=== PATIENT | male | born 1960 | race Caucasian/White ===

== ENCOUNTER 2020-06-20 09:30 | Emergency (ER) | payer MEDICAID, OTHER ==
[~2020-06-20] VITALS: Ht 177.8 cm; Wt 97.7 kg
[~2020-06-20 09:30] MED LIST: ASPI-1444 PO; ATOR40TA28 PO; SERT-162 PO
[2020-06-20] MEDS ORDERED: SODIUM CHLORIDE 0.9% 100 ML ONE (10:12)
[2020-06-20] MEDS ORDERED: IOVERSOL 350 MG/ML 100 ML VIAL ONE (10:12)
[2020-06-20] MEDS ORDERED: HYDROmorphone 2 MG/ML VIAL IVP ONE (10:15)
[2020-06-20] MEDS ORDERED: ONDANSETRON HCL 4 MG/2 ML VIAL IVP ONE (10:15)
[2020-06-20 10:16] LABS: BASOPHILS % (AUTO) 0.5 % (0.0-2.0); EOSINOPHILS % (AUTO) 3.1 % (1.0-6.0); HEMATOCRIT 43.4 % (41-53); HEMOGLOBIN 14.6 g/dL (13.5-17.5); LYMPHOCYTES % (AUTO) 14.6 % (22.0-44.0); MEAN CORPUSCULAR HEMOGLOBIN 33.2 pg (26.0-34.0); MEAN CORPUSCULAR HGB CONC 33.7 G/dL (31.0-37.0); MEAN CORPUSCULAR VOLUME 98 fL (80-100); MONOCYTES # (AUTO) 0.6 K/uL (0.1-1.0); MONOCYTES % (AUTO) 7.9 % (2.0-9.0); NEUTROPHILS # (AUTO) 5.3 K/uL (1.8-7.7); NEUTROPHILS % (AUTO) 73.9 % (40.0-70.0); PLATELET COUNT (AUTO) 181 K/uL (150-450); RED BLOOD CELL COUNT(AUTO) 4.41 MIL/uL (4.50-5.90); RED CELL DISTRIBUTION WIDTH 13.3 % (11.5-14.5)
[2020-06-20 10:27] LABS: ANION GAP 10 mmol/L (8-16); CARBON DIOXIDE 27 mmol/L (22-29); CHLORIDE 103 mmol/L (98-107); CREATININE 0.97 mg/dL (0.60-1.30); GLOMERULAR FILTR. RATE CALC > 60 mL/min (>60); GLUCOSE,RANDOM 104 mg/dL (70-110); POTASSIUM 4.4 mmol/L (3.5-5.1); SODIUM SERUM 140 mmol/L (136-145); UREA NITROGEN, BLOOD 25 mg/dL (7-18)
[2020-06-20 10:34] LABS: ALANINE AMINOTRANSFERASE 43 U/L (12-78); ALBUMIN 4.1 g/dL (3.4-5.0); ALKALINE PHOSPHATASE 71 U/L (46-116); ASPARTATE AMINOTRANSFERASE 25 U/L (15-37); BILIRUBIN,TOTAL 0.3 mg/dL (0.1-1.0); TOTAL PROTEIN, SERUM 8.1 g/dL (6.4-8.2)
[2020-06-20 10:41] LABS: LACTIC ACID 1.1 mmol/L (0.4-2.0)
[2020-06-20] MEDS ORDERED: HYDROCODONE/ACETAMINOPHEN 5-325 MG TABLET PO ONE (12:00)
[2020-06-20 12:12] VITALS: BP 109/89
== END 2020-06-20 12:29 | disposition home or self-care (01) ==
LOC: EMS 09:30
DX: K62.89 Other specified diseases of anus and rectum (principal); Z79.82 Long term (current) use of aspirin
CPT/HCPCS: 36415; 74177; 80053; 82962; 83605; 84484; 85025; 87040; 96374; 96375; 99285; J1170; J2405; J7050; Q9967

== ENCOUNTER 2022-01-22 07:55 | Emergency (ER) | payer OTHER ==
[~2022-01-22] VITALS: Ht 167.6 cm; Wt 86.4 kg
[2022-01-22 07:58] VITALS: BP 109/57
[2022-01-22] MEDS ORDERED: CARV3.1231 PO (08:00)
[2022-01-22] MEDS ORDERED: IBUPROFEN 600 MG TABLET PO ONE (08:15)
[2022-01-22] MEDS ORDERED: ACETAMINOPHEN 500 MG TABLET PO ONE (08:15)
[2022-01-22 08:22] LABS: COVID AG,FIA SOURCE NASOPHARYNGEAL
[2022-01-22 08:47] LABS: INFLUENZA TYPE B NEGATIVE FOR TYPE B (NEGATIVE)
[2022-01-22 08:57] LABS: INFLUENZA TYPE A POSITIVE FOR TYPE A (NEGATIVE)
[2022-01-22 09:00] LABS: BASOPHILS % (AUTO) 0.7 % (0.0-2.0); EOSINOPHILS % (AUTO) 1.1 % (1.0-6.0); HEMOGLOBIN 13.5 g/dL (13.5-17.5); LYMPHOCYTES # (AUTO) 0.4 K/uL (1.0-4.8); LYMPHOCYTES % (AUTO) 6.7 % (22.0-44.0); MEAN CORPUSCULAR HGB CONC 33.7 G/dL (31.0-37.0); MEAN CORPUSCULAR VOLUME 101 fL (80-100); MONOCYTES # (AUTO) 0.7 K/uL (0.1-1.0); MONOCYTES % (AUTO) 12.6 % (2.0-9.0); NEUTROPHILS # (AUTO) 4.3 K/uL (1.8-7.7); NEUTROPHILS % (AUTO) 78.9 % (40.0-70.0); PLATELET COUNT (AUTO) 141 K/uL (150-450); RED BLOOD CELL COUNT(AUTO) 3.96 MIL/uL (4.50-5.90); RED CELL DISTRIBUTION WIDTH 13.2 % (11.5-14.5)
[2022-01-22 09:10] LABS: CALCIUM, TOTAL 8.9 mg/dL (8.8-10.5); CREATININE 1.28 mg/dL (0.60-1.30); POTASSIUM 3.7 mmol/L (3.5-5.1)
[2022-01-22 09:17] LABS: ALBUMIN 3.6 g/dL (3.4-5.0); BILIRUBIN,TOTAL 0.3 mg/dL (0.1-1.0); TOTAL PROTEIN, SERUM 7.1 g/dL (6.4-8.2)
== END 2022-01-22 09:40 | disposition home or self-care (01) ==
LOC: EMS 07:55
DX: J11.1 Influenza due to unidentified influenza virus with other respiratory manifestations (principal); Z20.822 Contact with and (suspected) exposure to COVID-19; I25.10 Atherosclerotic heart disease of native coronary artery without angina pectoris; Z95.1 Presence of aortocoronary bypass graft
CPT/HCPCS: 71045; 80053; 82550; 83880; 84484; 85025; 87430; 87804; 93005; 99285; 36415-L1; 36415-TC

== ENCOUNTER 2022-03-29 04:08 | Inpatient (IN) | payer OTHER ==
[~2022-03-29] VITALS: Ht 170.2 cm; Wt 77.1 kg
[~2022-03-29 04:08] MED LIST changes: +CARV3.1231 PO
[2022-03-29] MEDS ORDERED: ACETAMINOPHEN 500 MG TABLET PO ONE (04:45)
[2022-03-29 05:09] LABS: BASOPHILS % (AUTO) 0.5 % (0.0-2.0); EOSINOPHILS % (AUTO) 0.8 % (1.0-6.0); HEMATOCRIT 38.7 % (41-53); HEMOGLOBIN 13.3 g/dL (13.5-17.5); LYMPHOCYTES # (AUTO) 0.6 K/uL (1.0-4.8); LYMPHOCYTES % (AUTO) 7.8 % (22.0-44.0); MEAN CORPUSCULAR HEMOGLOBIN 33.9 pg (26.0-34.0); MEAN CORPUSCULAR HGB CONC 34.5 G/dL (31.0-37.0); MEAN CORPUSCULAR VOLUME 98 fL (80-100); MONOCYTES # (AUTO) 0.5 K/uL (0.1-1.0); MONOCYTES % (AUTO) 5.9 % (2.0-9.0); NEUTROPHILS # (AUTO) 6.9 K/uL (1.8-7.7); PLATELET COUNT (AUTO) 223 K/uL (150-450); RED BLOOD CELL COUNT(AUTO) 3.93 MIL/uL (4.50-5.90); RED CELL DISTRIBUTION WIDTH 13.6 % (11.5-14.5)
[2022-03-29 05:15] LABS: CALCIUM, TOTAL 8.6 mg/dL (8.8-10.5); CREATININE 1.52 mg/dL (0.60-1.30); POTASSIUM 4.1 mmol/L (3.5-5.1)
[2022-03-29 05:38] LABS: BILIRUBIN,TOTAL 0.3 mg/dL (0.1-1.0); TOTAL PROTEIN, SERUM 7.8 g/dL (6.4-8.2)
[2022-03-29] MEDS ORDERED: NITROGLYCERIN 2% (1 GM=INCH) OINTMENT PACKET TP ONE (07:00)
[2022-03-29] MEDS ORDERED: HEPARIN SODIUM 25000 UNITS/D5W 250 ML IV PRN (07:00)
[2022-03-29] MEDS ORDERED: ASPIRIN 81 MG CHEWABLE TABLET PO ONE (07:00)
[2022-03-29 08:42] LABS: COVID AG,FIA SOURCE NASOPHARYNGEAL
[2022-03-29] MEDS ORDERED: SODIUM CHLORIDE 0.9% 1,000 ML IV SCH (10:00)
[2022-03-29 18:35] VITALS: BP 140/82
[2022-03-29] MEDS ORDERED: MORPHINE SULFATE 2 MG/ML SYRINGE IVP PRN (18:45)
[2022-03-29] MEDS ORDERED: ONDANSETRON HCL 4 MG/2 ML VIAL IVP PRN (18:45)
[2022-03-29] MEDS ORDERED: BISACODYL 10 MG RECTAL RECTAL SUPPOSITORY PR PRN (18:45)
[2022-03-29] MEDS ORDERED: ALBUTEROL SULFATE 2.5 MG/0.5 ML NEB SOLUTION NEB PRN (18:45)
[2022-03-29] MEDS ORDERED: IPRATROPIUM BROMIDE 0.5 MG/2.5 ML NEB SOLUTION NEB PRN (18:45)
[2022-03-29] MEDS ORDERED: MAGNESIUM HYDROXIDE SUSPENSION 30 ML UDCUP PO PRN (18:45)
[2022-03-29] MEDS ORDERED: ZOLPIDEM TARTRATE 5 MG TABLET PO PRN (18:45)
[2022-03-29] MEDS: DOCUSATE SODIUM 100 MG CAPSULE PO SCH (21:00)
[2022-03-29] MEDS ORDERED: SACUBITRIL/VALSARTAN 24-26 MG TABLET PO SCH (21:00)
[2022-03-29] MEDS: ATORVASTATIN CALCIUM 40 MG TABLET PO SCH (21:42)
[2022-03-29] MEDS: ACETAMINOPHEN 325 MG TABLET PO PRN (21:42)
[2022-03-29] MEDS: CARVEDILOL 3.125 MG TABLET PO SCH (21:42)
[2022-03-30] VITALS (9 sets, daily range): BP systolic 109–141; BP diastolic 57–79
[2022-03-30] MEDS: HEPARIN SODIUM,PORCINE 5,000 UNITS/ML VIAL SQ SCH ×4 (00:25→23:12)
[2022-03-30] MEDS: ACETAMINOPHEN 325 MG TABLET PO PRN (02:16)
[2022-03-30] MEDS: HYDROCODONE/ACETAMINOPHEN 5-325 MG TABLET PO PRN ×3 (06:58→23:09)
[2022-03-30 07:14] LABS: BASOPHILS % (AUTO) 0.5 % (0.0-2.0); EOSINOPHILS % (AUTO) 2.6 % (1.0-6.0); HEMATOCRIT 35.4 % (41-53); HEMOGLOBIN 12.3 g/dL (13.5-17.5); LYMPHOCYTES # (AUTO) 1.3 K/uL (1.0-4.8); LYMPHOCYTES % (AUTO) 21.4 % (22.0-44.0); MEAN CORPUSCULAR HGB CONC 34.9 G/dL (31.0-37.0); MEAN CORPUSCULAR VOLUME 98 fL (80-100); MONOCYTES # (AUTO) 0.8 K/uL (0.1-1.0); NEUTROPHILS # (AUTO) 3.7 K/uL (1.8-7.7); NEUTROPHILS % (AUTO) 62.5 % (40.0-70.0); PLATELET COUNT (AUTO) 207 K/uL (150-450); RED BLOOD CELL COUNT(AUTO) 3.63 MIL/uL (4.50-5.90); RED CELL DISTRIBUTION WIDTH 13.7 % (11.5-14.5)
[2022-03-30 07:20] LABS: ANION GAP 6 mmol/L (8-16); CALCIUM, TOTAL 8.8 mg/dL (8.8-10.5); CARBON DIOXIDE 28 mmol/L (22-29); CHLORIDE 104 mmol/L (98-107); CREATININE 0.95 mg/dL (0.60-1.30); GLUCOSE,RANDOM 103 mg/dL (70-110); POTASSIUM 4.1 mmol/L (3.5-5.1); SODIUM SERUM 138 mmol/L (136-145); UREA NITROGEN, BLOOD 16 mg/dL (7-18)
[2022-03-30 07:21] LABS: GLOMERULAR FILTR. RATE CALC > 60 mL/min (>60)
[2022-03-30] MEDS: ASPIRIN 81 MG DR TABLET PO SCH (08:17)
[2022-03-30] MEDS: CARVEDILOL 3.125 MG TABLET PO SCH ×2 (08:17→21:42)
[2022-03-30] MEDS: PANTOPRAZOLE SODIUM 40 MG/VIAL IVP SCH (08:17)
[2022-03-30] MEDS: DOCUSATE SODIUM 100 MG CAPSULE PO SCH ×2 (08:18→21:00)
[2022-03-30] MEDS: SERTRALINE HCL 100 MG TABLET PO SCH (08:18)
[2022-03-30] MEDS ORDERED: PERFLUTREN PROTEIN-A MICROSPHERES 0.22 MG/ML 3 ML VIAL IVP ONE (13:30)
[2022-03-30] MEDS: ATORVASTATIN CALCIUM 40 MG TABLET PO SCH (21:42)
[2022-03-31] VITALS: BP 113/53
[2022-03-31 04:00] VITALS: BP 119/60
[2022-03-31 08:20] VITALS: BP 115/67
[2022-03-31] MEDS: PANTOPRAZOLE SODIUM 40 MG/VIAL IVP SCH (09:00)
[2022-03-31] MEDS: HEPARIN SODIUM,PORCINE 5,000 UNITS/ML VIAL SQ SCH ×3 (09:01→23:48)
[2022-03-31] MEDS: CARVEDILOL 3.125 MG TABLET PO SCH ×2 (09:01→21:43)
[2022-03-31] MEDS: SERTRALINE HCL 100 MG TABLET PO SCH (09:02)
[2022-03-31] MEDS: DOCUSATE SODIUM 100 MG CAPSULE PO SCH ×2 (09:02→21:43)
[2022-03-31] MEDS: ASPIRIN 81 MG DR TABLET PO SCH (09:02)
[2022-03-31 10:54] LABS: ANION GAP 9 mmol/L (8-16); CALCIUM, TOTAL 9.4 mg/dL (8.8-10.5); CARBON DIOXIDE 29 mmol/L (22-29); CHLORIDE 103 mmol/L (98-107); CREATININE 0.96 mg/dL (0.60-1.30); GLUCOSE,RANDOM 151 mg/dL (70-110); POTASSIUM 3.8 mmol/L (3.5-5.1); SODIUM SERUM 141 mmol/L (136-145); UREA NITROGEN, BLOOD 13 mg/dL (7-18)
[2022-03-31 11:03] LABS: GLOMERULAR FILTR. RATE CALC > 60 mL/min (>60)
[2022-03-31 11:06] VITALS: BP 119/67
[2022-03-31] MEDS ORDERED: MAGNESIUM SULFATE 2 GM/WATER 50 ML IV ONE (13:00)
[2022-03-31] MEDS: ACETAMINOPHEN 325 MG TABLET PO PRN (14:16)
[2022-03-31 20:00] VITALS: BP 122/63
[2022-03-31] MEDS: ATORVASTATIN CALCIUM 40 MG TABLET PO SCH (21:43)
[2022-04-01] VITALS: BP 116/55
[2022-04-01 04:00] VITALS: BP 128/68
[2022-04-01 07:53] VITALS: BP 139/82
[2022-04-01] MEDS ORDERED: PANTOPRAZOLE SODIUM 40 MG DR TABLET PO SCH (09:00)
[2022-04-01] MEDS: CARVEDILOL 3.125 MG TABLET PO SCH (10:09)
[2022-04-01] MEDS: ASPIRIN 81 MG DR TABLET PO SCH (10:09)
[2022-04-01] MEDS: SERTRALINE HCL 100 MG TABLET PO SCH (10:09)
[2022-04-01] MEDS: DOCUSATE SODIUM 100 MG CAPSULE PO SCH (10:09)
[2022-04-01] MEDS: HEPARIN SODIUM,PORCINE 5,000 UNITS/ML VIAL SQ SCH ×2 (10:11→16:46)
[2022-04-01 11:01] VITALS: BP 116/80
[2022-04-01] MEDS: HYDROCODONE/ACETAMINOPHEN 5-325 MG TABLET PO PRN ×2 (12:10→18:47)
[2022-04-01 15:03] VITALS: BP 124/59
[2022-04-01] MEDS ORDERED: TERAZOSIN HCL 2 MG CAPSULE PO SCH (21:00)
== END 2022-04-01 19:25 | DRG 342 ==
LOC: EMS 04:10 → 5S 17:47
PROVIDERS: ADMIT Hospitalist; ATTEND Hospitalist
DX: S82.831A Other fracture of upper and lower end of right fibula, initial encounter for closed fracture (principal); N17.0 Acute kidney failure with tubular necrosis; I47.20 Ventricular tachycardia, unspecified; G90.8 Other disorders of autonomic nervous system; I50.22 Chronic systolic (congestive) heart failure; Z95.1 Presence of aortocoronary bypass graft; I11.0 Hypertensive heart disease with heart failure; Z20.822 Contact with and (suspected) exposure to COVID-19; E78.5 Hyperlipidemia, unspecified; E83.42 Hypomagnesemia; K59.00 Constipation, unspecified; W18.39XA Other fall on same level, initial encounter; E86.0 Dehydration; M24.071 Loose body in right ankle; I25.10 Atherosclerotic heart disease of native coronary artery without angina pectoris; N40.0 Benign prostatic hyperplasia without lower urinary tract symptoms; Z79.82 Long term (current) use of aspirin; Y93.89 Activity, other specified; Y92.89 Other specified places as the place of occurrence of the external cause; Y99.8 Other external cause status; Z71.6 Tobacco abuse counseling; Z72.0 Tobacco use
CPT/HCPCS: 70450; 71045; 73700; 74176; 80048; 80053; 82550; 83735; 83880; 84484; 85025; 93005; 93880; 97116; 97162; 97530; 99285; C8929; C9113; J1644; J3475; Q9967; 36415-L1; 36415-TC; C8928

== ENCOUNTER 2022-04-23 09:15 | Inpatient (IN) | payer OTHER ==
[~2022-04-23] VITALS: Ht 167.6 cm; Wt 84.1 kg
[~2022-04-23 09:15] MED LIST changes: -ASPI-1444 PO; -CARV3.1231 PO; +CeFAZolin 2 GM/DEXTROSE 50 ML IV ONE; +HEPA500018 SQ; +RINGERS SOLUTION,LACTATED 1,000 ML IV ONE
[2022-04-23 10:09] LABS: EOSINOPHILS % (AUTO) 2.9 % (1.0-6.0); HEMATOCRIT 38.5 % (41-53); HEMOGLOBIN 12.9 g/dL (13.5-17.5); LYMPHOCYTES # (AUTO) 1.2 K/uL (1.0-4.8); LYMPHOCYTES % (AUTO) 26.3 % (22.0-44.0); MEAN CORPUSCULAR HEMOGLOBIN 32.8 pg (26.0-34.0); MEAN CORPUSCULAR HGB CONC 33.6 G/dL (31.0-37.0); MEAN CORPUSCULAR VOLUME 98 fL (80-100); MONOCYTES # (AUTO) 0.5 K/uL (0.1-1.0); MONOCYTES % (AUTO) 11.3 % (2.0-9.0); NEUTROPHILS # (AUTO) 2.7 K/uL (1.8-7.7); NEUTROPHILS % (AUTO) 58.5 % (40.0-70.0); PLATELET COUNT (AUTO) 178 K/uL (150-450); RED BLOOD CELL COUNT(AUTO) 3.94 MIL/uL (4.50-5.90); RED CELL DISTRIBUTION WIDTH 13.8 % (11.5-14.5)
[2022-04-23] MEDS ORDERED: ACETAMINOPHEN 1000 MG/ISO-OSM 100 ML IV ONE ×2 (10:14→10:15)
[2022-04-23] MEDS ORDERED: BUPIVACAINE HCL/PF 0.5% 30 ML VIAL ONE (10:33)
[2022-04-23] MEDS ORDERED: BUPIVACAINE LIPOSOME/PF 1.3%-13.3MG/ML SUSPENSION 20 ML VIAL INJ ONE (10:45)
[2022-04-23 10:49] LABS: ALANINE AMINOTRANSFERASE 31 U/L (12-78); ALBUMIN 3.7 g/dL (3.4-5.0); ALKALINE PHOSPHATASE 90 U/L (46-116); ASPARTATE AMINOTRANSFERASE 20 U/L (15-37); BILIRUBIN,TOTAL 0.3 mg/dL (0.1-1.0); CALCIUM, TOTAL 9.4 mg/dL (8.8-10.5); CARBON DIOXIDE 31 mmol/L (22-29); CREATININE 1.08 mg/dL (0.60-1.30); GLOMERULAR FILTR. RATE CALC > 60 mL/min (>60); GLUCOSE,RANDOM 115 mg/dL (70-110); UREA NITROGEN, BLOOD 17 mg/dL (7-18)
[2022-04-23 11:02] LABS: ANION GAP 5 mmol/L (8-16); CHLORIDE 101 mmol/L (98-107); POTASSIUM 4.6 mmol/L (3.5-5.1); SODIUM SERUM 137 mmol/L (136-145)
[2022-04-23] MEDS ORDERED: VANCOMYCIN HCL 1 GM/VIAL ONE ×2 (11:36)
[2022-04-23] MEDS ORDERED: CeFAZolin 2 GM/DEXTROSE 50 ML IV ONE (12:00)
[2022-04-23] MEDS ORDERED: ZOLPIDEM TARTRATE 5 MG TABLET PO PRN ×2 (13:15→22:15)
[2022-04-23] MEDS ORDERED: MEPERIDINE-PF 25 MG/ML VIAL IVP PRN (13:15)
[2022-04-23] MEDS ORDERED: HYDROmorphone HCL 2 MG/ML SYRINGE IVP PRN ×2 (13:15)
[2022-04-23] MEDS ORDERED: FentaNYL CITRATE PF 100 MCG/2 ML VIAL IVP PRN (13:15)
[2022-04-23] MEDS ORDERED: OxyCODONE HCL 5 MG IR TABLET PO PRN (13:15)
[2022-04-23] MEDS ORDERED: ONDANSETRON HCL 4 MG/2 ML VIAL IVP PRN ×2 (13:15→22:15)
[2022-04-23] MEDS ORDERED: HYDROmorphone HCL 2 MG/ML SYRINGE ONE (14:47)
[2022-04-23] MEDS ORDERED: FentaNYL CITRATE PF 100 MCG/2 ML VIAL ONE (15:01)
[2022-04-23 16:00] VITALS: BP 147/92
[2022-04-23] MEDS: ACETAMINOPHEN 1000 MG/ISO-OSM 100 ML IV SCH (18:41)
[2022-04-23] MEDS: OXYGEN THERAPY IH SCH (20:00)
[2022-04-23] MEDS: CeFAZolin 1 GM/DEXTROSE 50 ML IV SCH (20:23)
[2022-04-23] MEDS: CYCLOBENZAPRINE HCL 10 MG TABLET PO PRN (20:25)
[2022-04-23 20:27] VITALS: BP 149/79
[2022-04-23] MEDS ORDERED: ASPIRIN 81 MG CHEWABLE TABLET PO SCH (21:00)
[2022-04-23] MEDS ORDERED: MAGNESIUM HYDROXIDE SUSPENSION 30 ML UDCUP PO PRN (22:15)
[2022-04-23] MEDS ORDERED: HYDROCODONE/ACETAMINOPHEN 5-325 MG TABLET PO PRN (22:15)
[2022-04-23] MEDS ORDERED: MORPHINE SULFATE 2 MG/ML SYRINGE IVP PRN (22:15)
[2022-04-23] MEDS ORDERED: ALBUTEROL SULFATE 2.5 MG/0.5 ML NEB SOLUTION NEB PRN (22:15)
[2022-04-23] MEDS ORDERED: IPRATROPIUM BROMIDE 0.5 MG/2.5 ML NEB SOLUTION NEB PRN (22:15)
[2022-04-23] MEDS ORDERED: ATORVASTATIN CALCIUM 40 MG TABLET PO ONE (22:15)
[2022-04-23] MEDS ORDERED: TERAZOSIN HCL 2 MG CAPSULE PO ONE (22:15)
[2022-04-23] MEDS ORDERED: BISACODYL 10 MG RECTAL RECTAL SUPPOSITORY PR PRN (22:15)
[2022-04-23] MEDS ORDERED: CARVEDILOL 3.125 MG TABLET PO ONE (22:30)
[2022-04-24] MEDS: ACETAMINOPHEN 1000 MG/ISO-OSM 100 ML IV SCH ×2 (00:45→05:06)
[2022-04-24] MEDS: HEPARIN SODIUM,PORCINE 5,000 UNITS/ML VIAL SQ SCH ×4 (00:45→23:41)
[2022-04-24] MEDS: CeFAZolin 1 GM/DEXTROSE 50 ML IV SCH (05:06)
[2022-04-24 05:19] VITALS: BP 116/61
[2022-04-24] MEDS ORDERED: ONDANSETRON HCL 4 MG/2 ML VIAL IVP ONE (06:52)
[2022-04-24] MEDS ORDERED: KETOROLAC TROMETHAMINE 60 MG/2 ML VIAL IM ONE (06:52)
[2022-04-24] MEDS ORDERED: ROCURONIUM BROMIDE 10 MG/ML 5 ML VIAL IVP ONE (06:52)
[2022-04-24] MEDS ORDERED: FentaNYL CITRATE PF 100 MCG/2 ML VIAL IVP ONE (06:52)
[2022-04-24] MEDS ORDERED: HYDROmorphone HCL 2 MG/ML SYRINGE IVP ONE (06:52)
[2022-04-24] MEDS ORDERED: MIDAZOLAM HCL 2 MG/2 ML VIAL IVP ONE (06:52)
[2022-04-24] MEDS ORDERED: PROPOFOL 1% 20 ML VIAL IVP ONE (06:52)
[2022-04-24] MEDS ORDERED: LIDOCAINE/PF 2% 5 ML VIAL IM ONE (06:52)
[2022-04-24] MEDS ORDERED: DEXAMETHASONE SOD PHOS 4 MG/ML VIAL IVP ONE (06:52)
[2022-04-24 08:00] VITALS: BP 125/71
[2022-04-24] MEDS: OXYGEN THERAPY IH SCH ×2 (08:00→20:00)
[2022-04-24] MEDS: TERAZOSIN HCL 2 MG CAPSULE PO SCH (08:48)
[2022-04-24] MEDS: CARVEDILOL 3.125 MG TABLET PO SCH ×2 (08:48→20:17)
[2022-04-24] MEDS: PANTOPRAZOLE SODIUM 40 MG DR TABLET PO SCH (08:48)
[2022-04-24] MEDS: ASPIRIN 81 MG CHEWABLE TABLET PO SCH ×2 (08:48→20:17)
[2022-04-24] MEDS: SERTRALINE HCL 100 MG TABLET PO SCH (08:48)
[2022-04-24] MEDS ORDERED: PANTOPRAZOLE SODIUM 40 MG DR TABLET PO SCH (09:00)
[2022-04-24] MEDS ORDERED: ACETAMINOPHEN 325 MG TABLET PO PRN (09:00)
[2022-04-24] MEDS ORDERED: HYDROCODONE/ACETAMINOPHEN 10-325 MG TABLET PO PRN (13:00)
[2022-04-24 15:52] VITALS: BP 109/62
[2022-04-24] MEDS: HYDROCODONE/ACETAMINOPHEN 5-325 MG TABLET PO PRN ×2 (16:07→22:11)
[2022-04-24] MEDS: ATORVASTATIN CALCIUM 40 MG TABLET PO SCH (20:17)
[2022-04-24 23:10] VITALS: BP 126/53
[2022-04-25] MEDS: HYDROCODONE/ACETAMINOPHEN 5-325 MG TABLET PO PRN ×3 (05:29→21:58)
[2022-04-25 06:53] VITALS: BP 130/77
[2022-04-25 07:59] VITALS: BP 124/63
[2022-04-25] MEDS: OXYGEN THERAPY IH SCH ×2 (08:00→20:00)
[2022-04-25] MEDS: HEPARIN SODIUM,PORCINE 5,000 UNITS/ML VIAL SQ SCH ×2 (08:00→16:42)
[2022-04-25] MEDS: ASPIRIN 81 MG CHEWABLE TABLET PO SCH ×2 (08:25→20:30)
[2022-04-25] MEDS: SERTRALINE HCL 100 MG TABLET PO SCH (08:26)
[2022-04-25] MEDS: CYCLOBENZAPRINE HCL 10 MG TABLET PO PRN (08:26)
[2022-04-25] MEDS: CARVEDILOL 3.125 MG TABLET PO SCH ×2 (08:26→21:00)
[2022-04-25] MEDS: TERAZOSIN HCL 2 MG CAPSULE PO SCH (08:26)
[2022-04-25] MEDS: PANTOPRAZOLE SODIUM 40 MG DR TABLET PO SCH (08:26)
[2022-04-25 15:16] VITALS: BP 98/65
[2022-04-25 19:53] VITALS: BP 93/65
[2022-04-25 20:25] VITALS: BP 112/67
[2022-04-25] MEDS: ATORVASTATIN CALCIUM 40 MG TABLET PO SCH (20:30)
[2022-04-26] MEDS: HEPARIN SODIUM,PORCINE 5,000 UNITS/ML VIAL SQ SCH ×3 (00:18→15:57)
[2022-04-26 05:05] VITALS: BP 119/81
[2022-04-26] MEDS: OXYGEN THERAPY IH SCH ×2 (08:00→20:00)
[2022-04-26] MEDS: ASPIRIN 81 MG CHEWABLE TABLET PO SCH ×2 (08:49→20:35)
[2022-04-26] MEDS: TERAZOSIN HCL 2 MG CAPSULE PO SCH (08:49)
[2022-04-26] MEDS: PANTOPRAZOLE SODIUM 40 MG DR TABLET PO SCH (08:50)
[2022-04-26] MEDS: CARVEDILOL 3.125 MG TABLET PO SCH ×2 (08:50→20:35)
[2022-04-26] MEDS: HYDROCODONE/ACETAMINOPHEN 5-325 MG TABLET PO PRN ×4 (08:50→22:09)
[2022-04-26] MEDS: SERTRALINE HCL 100 MG TABLET PO SCH (08:50)
[2022-04-26 10:02] VITALS: BP 116/69
[2022-04-26 17:08] VITALS: BP 109/65
[2022-04-26 20:23] VITALS: BP 108/62
[2022-04-26] MEDS: ATORVASTATIN CALCIUM 40 MG TABLET PO SCH (20:35)
[2022-04-27] MEDS: HEPARIN SODIUM,PORCINE 5,000 UNITS/ML VIAL SQ SCH ×2 (00:02→08:29)
[2022-04-27] MEDS ORDERED: ASPI-1450 PO (01:01)
[2022-04-27] MEDS ORDERED: CARV3 PO (01:02)
[2022-04-27] MEDS ORDERED: ATOR40TA28 PO (01:02)
[2022-04-27] MEDS ORDERED: HEPA500018 SQ (01:03)
[2022-04-27] MEDS ORDERED: PANT-31 PO (01:04)
[2022-04-27] MEDS ORDERED: SERT-162 PO (01:04)
[2022-04-27] MEDS ORDERED: TERA2CAP10 PO (01:05)
[2022-04-27] MEDS ORDERED: ACET-2247 PO (01:06)
[2022-04-27] MEDS ORDERED: AUD NEB (01:07)
[2022-04-27] MEDS ORDERED: CYCL-448 PO (01:09)
[2022-04-27] MEDS ORDERED: BISA10SU11 PR (01:09)
[2022-04-27] MEDS ORDERED: HYDR-4723 PO (01:11)
[2022-04-27] MEDS ORDERED: IPRNEB IH (01:13)
[2022-04-27] MEDS ORDERED: MAGN-169 PO (01:13)
[2022-04-27] MEDS ORDERED: ZOLP-280 PO (01:14)
[2022-04-27 05:01] VITALS: BP 98/60
[2022-04-27 08:01] VITALS: BP 123/67
[2022-04-27] MEDS: ASPIRIN 81 MG CHEWABLE TABLET PO SCH (08:28)
[2022-04-27] MEDS: HYDROCODONE/ACETAMINOPHEN 5-325 MG TABLET PO PRN (08:28)
[2022-04-27] MEDS: SERTRALINE HCL 100 MG TABLET PO SCH (08:29)
[2022-04-27] MEDS: PANTOPRAZOLE SODIUM 40 MG DR TABLET PO SCH (08:29)
[2022-04-27] MEDS: CARVEDILOL 3.125 MG TABLET PO SCH (08:29)
[2022-04-27] MEDS: TERAZOSIN HCL 2 MG CAPSULE PO SCH (08:30)
[2022-04-27 15:10] VITALS: BP 102/70
== END 2022-04-27 16:07 | DRG 313 ==
LOC: SURGERY 09:15 → 6S 09:16 → UNDOADMIN 15:46 → 6S 15:46
PROVIDERS: ADMIT Hospitalist; ATTEND Hospitalist
PROC: 0QSG04Z Reposition Right Tibia with Internal Fixation Device, Open Approach (ICD-10-PCS; 2022-04-23)
PROC: 0SCF0ZZ Extirpation of Matter from Right Ankle Joint, Open Approach (ICD-10-PCS; 2022-04-23)
PROC: 0QSJ04Z Reposition Right Fibula with Internal Fixation Device, Open Approach (ICD-10-PCS; principal; 2022-04-23 12:40)
DX: S82.841A Displaced bimalleolar fracture of right lower leg, initial encounter for closed fracture (principal); I11.0 Hypertensive heart disease with heart failure; I50.22 Chronic systolic (congestive) heart failure; N40.0 Benign prostatic hyperplasia without lower urinary tract symptoms; M24.071 Loose body in right ankle; E78.5 Hyperlipidemia, unspecified; F17.200 Nicotine dependence, unspecified, uncomplicated; Z79.82 Long term (current) use of aspirin
CPT/HCPCS: 80053; 85025; 93005; 97110; 97116; 97162; 97165; 97530; 97535; C9290; J0131; J0690; J1100; J1170; J1644; J1885; J2250; J2405; J2704; J3010; J3370; J3490; J7120

== ENCOUNTER 2023-01-05 11:53 | Emergency (ER) | payer OTHER ==
[~2023-01-05] VITALS: Ht 170.2 cm; Wt 72.7 kg
[~2023-01-05 11:53] MED LIST changes: +ACET-2247 PO; +ALBU2.5V39 NEB; +ASPI-1450 PO; +BISA10SU11 PR; +CARV3 PO; +CYCL-448 PO; -CeFAZolin 2 GM/DEXTROSE 50 ML IV ONE; +HYDR-4723 PO; +IPRA0.2S49 IH; +MAGN-169 PO; +PANT-31 PO; -RINGERS SOLUTION,LACTATED 1,000 ML IV ONE; +TERA2CAP10 PO; +ZOLP-280 PO
[2023-01-05 11:59] VITALS: TEMP 98.5
[2023-01-05] MEDS ORDERED: SACU1TAB PO (12:16)
[2023-01-05] MEDS ORDERED: GABA-1181 PO (12:16)
[2023-01-05] MEDS ORDERED: RANO500T27 PO (12:16)
[2023-01-05] MEDS ORDERED: IBUPROFEN 600 MG TABLET PO ONE (15:15)
[2023-01-05 16:00] VITALS: BP 127/71; PULSE 98; RESP 17
[2023-01-05] MEDS ORDERED: IBUP-1492 PO (16:03)
== END 2023-01-05 16:33 | disposition home or self-care (01) ==
LOC: EMS 12:48
DX: M25.561 Pain in right knee (principal); F17.210 Nicotine dependence, cigarettes, uncomplicated; Z98.890 Other specified postprocedural states
CPT/HCPCS: 29505; 99283